=== PATIENT | male | born 1980 | race African-American/Black ===

== ENCOUNTER 2016-11-07 10:40 | Emergency (ER) | payer SELFPAY ==
[2016-03-26 13:39] VITALS: BP 96/50
== END 2016-11-07 11:45 | disposition left against medical advice (07) ==
LOC: ER 10:40
DX: M54.2 Cervicalgia (principal); Z53.21 Procedure and treatment not carried out due to patient leaving prior to being seen by health care provider

== ENCOUNTER 2017-03-11 07:54 | Emergency (ER) | payer SELFPAY ==
[~2017-03-11] VITALS: Ht 175.3 cm; Wt 83.0 kg
[2017-03-11 08:02] VITALS: BP 144/65
[2017-03-11 08:42] LABS: BASO % 0 % (0-3); EOS % 3 % (0-3); HEMATOCRIT 44.3 % (39.0-53.0); HEMOGLOBIN 14.8 g/dL (13.0-17.5); LYMPH # 1.9 x10^3/uL (1.0-4.8); LYMPH % 37 % (24-48); MEAN CORPUSCULAR HEMOGLOBIN 32 pg (25-35); MEAN CORPUSCULAR HGB CONC 34 g/dL (31-37); MEAN CORPUSCULAR VOLUME 97 fL (79-100); MONO % 8 % (0-9); NEUT % 53 % (31-73); PLATELET COUNT 210 x10^3/uL (140-400); RED BLOOD COUNT 4.58 x10^6/uL (4.30-5.70); RED CELL DISTRIBUTION WIDTH 13.4 % (11.5-14.5)
[2017-03-11 08:48] LABS: BILIRUBIN,URINE NEGATIVE (NEG); GLUCOSE,URINE NEGATIVE (NEG); NITRITE,URINE NEGATIVE (NEG); PH,URINE 6.5; PROTEIN,URINE NEGATIVE (NEG-TRACE); UROBILINOGEN,URINE 0.2 mg/dL (0.2 mg/dL)
--- NOTE | 2017-03-11 08:49 | PHYS DOC ---
Past Medical History Past Medical History: No Pertinent History Past Surgical History: No Surgical History Alcohol Use: Occasionally Drug Use: Marijuana Adult General Chief Complaint Chief Complaint: OTHER COMPLAINTS [facility] HPI Patient is a 36 year old male with no significant medical history who presents with multiple pain related complaints. Patient is complaining of 7 out of 10 left upper quadrant abdominal pain that began 3-4 days ago. Patient denies anything exacerbating or making the pain better. Denies any nausea vomiting. Patient is also complaining of isolated left lateral neck pain that began 3-4 days ago. Patient describes the pain as sharp only on movement of his neck to the left side. Patient denies any trauma. Denies any chest pain or shortness of breath. Patient is also complaining of mild left ventral forearm pain that began yesterday. Patient states the pain is worse on palpation of the left forearm. Patient denies any trauma. Denies doing any job that involves lifting. Patient states he has seen many commercials for stroke and would like to be worked up for CVA. Patient denies smoking. Review of Systems Review of Systems Constitutional: Denies fever or chills [] Eyes: Denies change in visual acuity, redness, or eye pain [] HENT: Denies nasal congestion or sore throat [] Respiratory: Denies cough or shortness of breath [] Cardiovascular: No additional information not addressed in HPI [] GI: Left upper quadrant pain [] : Denies dysuria or hematuria [] Musculoskeletal: Left forearm pain, left lateral neck pain Integument: Denies rash or skin lesions [] Neurologic: Denies headache, focal weakness or sensory changes [] Endocrine: Denies polyuria or polydipsia [] Allergies Allergies Allergies Coded Allergies Type Severity Reaction Last Updated Verified No Known Drug Allergies 05/13/14 No Physical Exam Physical Exam Constitutional: Well developed, well nourished, no acute distress, non-toxic appearance. [] HENT: Normocephalic, atraumatic, bilateral external ears normal, oropharynx moist, no oral exudates, nose normal. [] Eyes: PERRLA, EOMI, conjunctiva normal, no discharge. [] Neck: Normal range of motion, no tenderness, pain on rotation of the neck to the left side, supple, no stridor. [] Cardiovascular:Heart rate regular rhythm, no murmur [] Lungs & Thorax: Bilateral breath sounds clear to auscultation [] Abdomen: Bowel sounds normal, soft, no tenderness, no masses, no pulsatile masses. [] Skin: Warm, dry, no erythema, no rash. [] Back: No tenderness, no CVA tenderness. [] Extremities: No tenderness, no cyanosis, no clubbing, ROM intact, no edema. [] Neurologic: Alert and oriented X 3, normal motor function, normal sensory function, no focal deficits noted. [] Psychologic: Affect normal, judgement normal, mood normal. [] Current Patient Data Vital Signs Vital Signs Date Time Temp Pulse Resp B/P (MAP) Pulse Ox O2 Delivery O2 Flow Rate FiO2 03/11/17 08:02 98.5 68 144/65 (91) 98.5 Lab Values Laboratory Tests Test 03/11/17 07:58 03/11/17 08:33 Urine Collection Type Void Urine Color Yellow Urine Clarity Clear Urine pH 6.5 Urine Specific [place] 1.020 Urine Protein Negative mg/dL (NEG-TRACE) Urine Glucose (UA) Negative mg/dL (NEG) Urine Ketones (Stick) Negative mg/dL (NEG) Urine Blood Negative (NEG) Urine Nitrite Negative (NEG) Urine Bilirubin Negative (NEG) Urine Urobilinogen Dipstick 0.2 mg/dL (0.2 mg/dL) Urine Leukocyte Esterase Small (NEG) Urine RBC 0 /HPF (0-2) Urine WBC 1-4 /HPF (0-4) Urine Squamous Epithelial Cells Occ /LPF Urine Bacteria 0 /HPF (0-FEW) Urine Mucus Slight /LPF Urine Opiates Screen Neg (NEG) Urine Methadone Screen Neg (NEG) Urine Barbiturates Neg (NEG) Urine Phencyclidine Screen Neg (NEG) Urine Amphetamine/Methamphetamine Neg (NEG) Urine Benzodiazepines Screen Neg (NEG) Urine Cocaine Screen Neg (NEG) Urine Cannabinoids Screen Pos (NEG) Urine Ethyl Alcohol Neg (NEG) White Blood Count 5.0 x10^3/uL (4.0-11.0) Red Blood Count 4.58 x10^6/uL (4.30-5.70) Hemoglobin 14.8 g/dL (13.0-17.5) Hematocrit 44.3 % (39.0-53.0) Mean Corpuscular Volume 97 fL (79-100) Mean Corpuscular Hemoglobin 32 pg (25-35) Mean Corpuscular Hemoglobin Concent 34 g/dL (31-37) Red Cell Distribution Width 13.4 % (11.5-14.5) Platelet Count 210 x10^3/uL (140-400) Neutrophils (%) (Auto) 53 % (31-73) Lymphocytes (%) (Auto) 37 % (24-48) Monocytes (%) (Auto) 8 % (0-9) Eosinophils (%) (Auto) 3 % (0-3) Basophils (%) (Auto) 0 % (0-3) Neutrophils # (Auto) 2.6 x10^3uL (1.8-7.7) Lymphocytes # (Auto) 1.9 x10^3/uL (1.0-4.8) Monocytes # (Auto) 0.4 x10^3/uL (0.0-1.1) Eosinophils # (Auto) 0.1 x10^3/uL (0.0-0.7) Basophils # (Auto) 0.0 x10^3/uL (0.0-0.2) Prothrombin Time 12.7 SEC (11.7-14.0) Prothrombin Time INR 1.0 (0.8-1.1) PTT 27 SEC (24-38) Sodium Level 143 mmol/L (136-145) Potassium Level 4.4 mmol/L (3.5-5.1) Chloride Level 107 mmol/L (98-107) Carbon Dioxide Level 32 mmol/L (21-32) Anion Gap 4 (6-14) L Blood Urea Nitrogen 18 mg/dL (8-26) Creatinine 1.1 mg/dL (0.7-1.3) Estimated GFR (Cockcroft-Gault) 92.2 BUN/Creatinine Ratio 16 (6-20) Glucose Level 100 mg/dL (70-99) H Calcium Level 8.8 mg/dL (8.5-10.1) Total Bilirubin 0.5 mg/dL (0.2-1.0) Aspartate Amino Transferase (AST) 23 U/L (15-37) Alanine Aminotransferase (ALT) 39 U/L (16-63) Alkaline Phosphatase 55 U/L (46-116) Troponin I Quantitative < 0.017 ng/mL (0.000-0.055) Total Protein 6.8 g/dL (6.4-8.2) Albumin 3.8 g/dL (3.4-5.0) Albumin/Globulin Ratio 1.3 (1.0-1.7) Lipase 494 U/L (73-393) H Ethyl Alcohol Level < 10 mg/dL (0-10) Laboratory Tests 03/11/17 08:33 Laboratory Tests 03/11/17 08:33 EKG EKG [] Radiology/Procedures Radiology/Procedures [] Course & Med Decision Making Course & Med Decision Making Pertinent Labs and Imaging studies reviewed. (See chart for details) Patient is in the ED with multiple pain related complaints. Patient is complaining of left upper quadrant abdominal pain for 3-4 days, and left lateral neck pain worse on movement for 3-4 days, and left ventral forearm pain for 1 day. No known trauma. Patient would like to be worked up for CVA. He states has seen so many stroke commercials and would like to be worked up. He has no history of stroke. EKG interpreted by , Sinus Rhythm, HR 50 QRS interval 86, no STEMI CBC BMP troponin with no acute findings. Lipase 494. Patient states he has been drinking over the holidays but not much. CT of the abdomen and pelvic with no acute findings. Patient was discharged with instructions to follow-up with the primary care doctor. Discharged with naproxen and Flexeril. Provided return precautions and discharged in stable condition. Dragon Disclaimer Dragon Disclaimer This electronic medical record was generated, in whole or in part, using a voice recognition dictation system. Departure Departure Impression: Primary Impression: Torticollis, acute Additional Impressions: Left upper quadrant pain Musculoskeletal pain of left upper extremity Elevated lipase Marijuana abuse Disposition: 01 HOME, SELF-CARE Condition: STABLE Referrals: NO PCP (PCP) Follow-up with your own doctor in the next 1 week Patient Instructions: Musculoskeletal Pain, Torticollis, Acute Additional Instructions: You were seen with multiple musculoskeletal pain complaints. We highly recommend you follow-up with your own primary care doctor. Use the prescriptions provided as needed. Come back to the ED symptoms worsen. Scripts Naproxen (NAPROXEN) 500 Mg Tablet. 1 TAB PO BID, #60 TAB 1 Refill Prov: MOJAVIERJOSUE APRN 03/11/17 Cyclobenzaprine Hcl (CYCLOBENZAPRINE HCL) 10 Mg Tablet 1 TAB PO TID, #30 TAB Prov: JOSUE VILLEDA APRN 03/11/17 Problem Qualifiers JOSUE VILLEDA APRN March 11, 2017 08:49
[2017-03-11 08:53] LABS: BARBITURATES NEG (NEG); BENZODIAZEPINES NEG (NEG); CANNABINOIDS POS (NEG); COCAINE NEG (NEG); METHADONE NEG (NEG); PHENCYCLIDINE NEG (NEG)
[2017-03-11 08:55] LABS: CALCIUM 8.8 mg/dL (8.5-10.1); CREATININE 1.1 mg/dL (0.7-1.3); GFR 92.2; POTASSIUM 4.4 mmol/L (3.5-5.1); PROTHROMBIN TIME PATIENT 12.7 SEC (11.7-14.0)
[2017-03-11 08:56] LABS: BACTERIA,URINE 0 /HPF (0-FEW); RBC,URINE 0 /HPF (0-2); SQUAMOUS EPITHELIAL CELL,UR OCC /LPF
[2017-03-11 09:01] LABS: ALBUMIN 3.8 g/dL (3.4-5.0); ALBUMIN/GLOBULIN RATIO 1.3 (1.0-1.7); TOTAL BILIRUBIN 0.5 mg/dL (0.2-1.0); TOTAL PROTEIN 6.8 g/dL (6.4-8.2)
[2017-03-11 09:02] LABS: OPIATES NEG (NEG)
--- NOTE | 2017-03-11 09:05 | RAD ---
Indication left upper quadrant pain. Axial images through the abdomen and pelvis were obtained. The examination is limited. No IV or gastrointestinal contrast was administered. No prior imaging of the abdomen or pelvis is available. The lung bases are clear. The liver and spleen appear unremarkable and the gallbladder appears grossly normal. No pancreatic pathology is suggested. There are no adrenal masses and the kidneys appear normal. No renal calculi are seen on either side. There is no hydronephrosis hydroureter or definite calcification seen along the course of either ureter. Occasional calcifications are noted in the pelvis compatible with phleboliths. An acute finding in the abdomen is not seen. No acute finding is apparent in the pelvis. IMPRESSION:: No acute finding seen in the abdomen or pelvis. PQRS Compliance Statement: One or more of the following individualized dose reduction techniques were utilized for this examination: 1. Automated exposure control 2. Adjustment of the mA and/or kV according to patient size 3. Use of iterative reconstruction technique
[2017-03-11] MEDS ORDERED: CYCL10TA2 PO (09:46)
[2017-03-11] MEDS ORDERED: NAPR500T8 PO (09:46)
--- NOTE | 2017-03-11 11:16 | EKG ---
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
== END 2017-03-11 10:05 | disposition home or self-care (01) ==
LOC: ER 07:54
DX: R10.12 Left upper quadrant pain (principal); M43.6 Torticollis; M79.1 Myalgia; R74.8 Abnormal levels of other serum enzymes; F12.10 Cannabis abuse, uncomplicated
CPT/HCPCS: 36415; 74176; 80053; 80305; 80320; 81001; 83690; 84484; 85027; 85610; 85730; 93005; G0480; G0481; 99285-25

== ENCOUNTER 2018-01-05 18:30 | Emergency (ER) | payer SELFPAY | END 2018-01-05 19:07 | disposition home or self-care (01) | LOC: ER 19:07 | DX: H66.42 Suppurative otitis media, unspecified, left ear (principal); F12.10 Cannabis abuse, uncomplicated | CPT/HCPCS: 10060; 99283-25 ==

== ENCOUNTER 2018-03-12 06:08 | Emergency (ER) | payer SELFPAY ==
[2018-03-12 07:41] LABS: ADD MAN DIFF? NO
[2018-03-12 07:57] LABS: BASO % 1 % (0-3); EOS # 0.1 x10^3/uL (0.0-0.7); EOS % 2 % (0-3); HEMATOCRIT 46.1 % (39.0-53.0); HEMOGLOBIN 15.8 g/dL (13.0-17.5); LYMPH # 1.8 x10^3/uL (1.0-4.8); LYMPH % 30 % (24-48); MEAN CORPUSCULAR HEMOGLOBIN 33 pg (25-35); MEAN CORPUSCULAR HGB CONC 34 g/dL (31-37); MEAN CORPUSCULAR VOLUME 95 fL (79-100); MONO # 0.4 x10^3/uL (0.0-1.1); MONO % 7 % (0-9); NEUT # 3.6 x10^3uL (1.8-7.7); NEUT % 60 % (31-73); PLATELET COUNT 254 x10^3/uL (140-400); RED BLOOD COUNT 4.84 x10^6/uL (4.30-5.70); RED CELL DISTRIBUTION WIDTH 13.8 % (11.5-14.5)
[2018-03-12 07:58] LABS: ANION GAP 8 (6-14); BLOOD UREA NITROGEN 19 mg/dL (8-26); CALCIUM 8.9 mg/dL (8.5-10.1); CARBON DIOXIDE 30 mmol/L (21-32); CHLORIDE 104 mmol/L (98-107); CREATININE 1.1 mg/dL (0.7-1.3); GFR 91.6; GLUCOSE 95 mg/dL (70-99); POTASSIUM 4.2 mmol/L (3.5-5.1); SODIUM 142 mmol/L (136-145)
[2018-03-12 08:07] LABS: TROPONINI < 0.017 ng/mL (0.000-0.055)
[2018-03-12 08:24] LABS: D-DIMER < 0.27 ug/mlFEU (0.00-0.50)
== END 2018-03-12 08:53 | disposition home or self-care (01) ==
LOC: ER 06:08
DX: S16.1XXA Strain of muscle, fascia and tendon at neck level, initial encounter (principal); F12.10 Cannabis abuse, uncomplicated; X58.XXXA Exposure to other specified factors, initial encounter; Y93.89 Activity, other specified; Y99.8 Other external cause status; Y92.89 Other specified places as the place of occurrence of the external cause
CPT/HCPCS: 36415; 71046; 80048; 84484; 85025; 85379; 93005; 99285-25

== ENCOUNTER 2018-04-27 17:13 | Emergency (ER) | payer SELFPAY ==
[2018-04-27] MEDS: traMADol 50 MG TABLET PO (17:36)
== END 2018-04-27 17:38 | disposition home or self-care (01) ==
LOC: ER 17:13
DX: S69.92XA Unspecified injury of left wrist, hand and finger(s), initial encounter (principal); W22.8XXA Striking against or struck by other objects, initial encounter; Y93.67 Activity, basketball; Y92.89 Other specified places as the place of occurrence of the external cause; Y99.8 Other external cause status
CPT/HCPCS: 99283

== ENCOUNTER 2018-05-19 08:54 | Emergency (ER) | payer SELFPAY | END 2018-05-19 10:13 | disposition home or self-care (01) | LOC: ER 08:54 | DX: S62.611A Displaced fracture of proximal phalanx of left index finger, initial encounter for closed fracture (principal); W21.05XA Struck by basketball, initial encounter; Y93.89 Activity, other specified; Y92.89 Other specified places as the place of occurrence of the external cause; Y99.8 Other external cause status | CPT/HCPCS: 29130; 73140; 99284 ==

== ENCOUNTER 2018-09-15 19:18 | Emergency (ER) | payer SELFPAY ==
[~2018-09-15] VITALS: Ht 175.3 cm; Wt 83.0 kg
[~2018-09-15 19:18] MED LIST: CYCL10TA2 PO; MUPI22OI2 TP; NAPR500T8 PO; TRAM50TA PO
[2018-09-15 19:29] VITALS: BP 137/68
--- NOTE | 2018-09-15 19:34 | PHYS DOC ---
Past Medical History Past Medical History: No Pertinent History Past Surgical History: No Surgical History Alcohol Use: None Drug Use: Marijuana Adult General Chief Complaint Chief Complaint: EYE PROBLEMS HPI HPI 38-year-old male presents to ER via POV with complaints of right eye irritation and lower lid swelling. Patient reports symptoms have been ongoing for the past couple of days but have been gradually worsening with increased itching. Patient denies any injury or foreign body. Patient denies working with chemicals or splashing liquid into his eye. Patient denies fever, sinus issues, or cold-like symptoms. Patient reports with increased irritation he has had some intermittent blurred vision from right eye. He reports he has had clear drainage from the eye. Review of Systems Review of Systems Constitutional: Denies fever or chills [] Eyes: Denies change in visual acuity, redness, or eye pain [] HENT: Denies nasal congestion or sore throat [] Respiratory: Denies cough or shortness of breath [] Cardiovascular: No additional information not addressed in HPI [] GI: Denies abdominal pain, nausea, vomiting, bloody stools or diarrhea [] : Denies dysuria or hematuria [] Musculoskeletal: Denies back pain or joint pain [] Integument: Denies rash or skin lesions [] Neurologic: Denies headache, focal weakness or sensory changes [] Endocrine: Denies polyuria or polydipsia [] All other systems were reviewed and found to be within normal limits, except as documented in this note. Current Medications Current Medications Current Medications Medications (Trade) Dose Ordered Sig/Katina Start Time Stop Time Status Last Admin Dose Admin Erythromycin (Romycin) 1 inch STK-MED ONCE 09/15/18 19:37 09/15/18 19:38 DC Proparacaine HCl/ Fluorescein Sodium (Flucaine Eye Drops) 1 drop 1X ONCE 09/15/18 19:45 09/15/18 19:46 DC 09/15/18 19:47 1 DROP Tetracaine HCl (Tetracaine) 40 drop STK-MED ONCE 09/15/18 19:37 09/15/18 19:38 DC Allergies Allergies Allergies Coded Allergies Type Severity Reaction Last Updated Verified No Known Drug Allergies 05/13/14 No Physical Exam Physical Exam Constitutional: Well developed, well nourished, no acute distress, non-toxic appearance. [] HENT: Normocephalic, atraumatic, bilateral external ears normal, oropharynx moist, no oral exudates, nose normal. [] Eyes: PERRLA, EOMI, conjunctiva normal, no discharge. [] Neck: Normal range of motion, no tenderness, supple, no stridor. [] Cardiovascular:Heart rate regular rhythm, no murmur [] Lungs & Thorax: Bilateral breath sounds clear to auscultation [] Abdomen: Bowel sounds normal, soft, no tenderness, no masses, no pulsatile masses. [] Skin: Warm, dry, no erythema, no rash. [] Back: No tenderness, no CVA tenderness. [] Extremities: No tenderness, no cyanosis, no clubbing, ROM intact, no edema. [] Neurologic: Alert and oriented X 3, normal motor function, normal sensory function, no focal deficits noted. [] Psychologic: Affect normal, judgement normal, mood normal. [] Current Patient Data Vital Signs Vital Signs Date Time Temp Pulse Resp B/P (MAP) Pulse Ox O2 Delivery O2 Flow Rate FiO2 09/15/18 19:29 98.7 63 18 137/68 (91) 99 Room Air 98.7 EKG EKG [] Radiology/Procedures Radiology/Procedures Eye Exam w/ mccormack lamp: 2000 Visual Acuity: Visual Koch: Intact in all four quadrants bilaterally Lac ducts/glands: No swelling Lids w/ evertion: Small stye left lower eyelid, no foreign body Conj/[place]: negative Fluorescein Course & Med Decision Making Course & Med Decision Making [] Dragon Disclaimer Dragon Disclaimer This electronic medical record was generated, in whole or in part, using a voice recognition dictation system. Departure Departure Impression: Primary Impression: Conjunctivitis Additional Impression: Hordeolum externum left lower eyelid Disposition: HOME, SELF-CARE Condition: STABLE Referrals: NO PCP (PCP) Patient Instructions: Conjunctivitis (Viral and Bacterial), Sty Additional Instructions: Avoid rubbing eye- cool compress to eye 3-4 times a day. Tylenol and/or ibuprofen as directed on container as needed for pain. If symptoms persist follow-up with the baking assistant or primary care physician. Scripts Erythromycin Base (Erythromycin) 1 Gm Oint...g. 1 GM OP QID, #1 MISC 0 Refills 0.5% 1/2' RIBBON TO RIGHT LOWER EYELID Prov: MARIE GUZMAN APRN 09/15/18 Problem Qualifiers MARIE GUZMAN APRN Sep 15, 2018 19:34
[2018-09-15] MEDS ORDERED: TETRACAINE 0.5% OPHTH SOLUTION 4ML BOTTLE. ONE (19:37)
[2018-09-15] MEDS ORDERED: ERYTHROMYCIN 0.5% OPHTH OINTMENT 1GM TUBE. ONE (19:37)
[2018-09-15] MEDS ORDERED: ERYT1OIN6 OP (19:43)
[2018-09-15] MEDS ORDERED: ERYTHROMYCIN 0.5% OPHTH OINTMENT 1GM TUBE. OD ONE (19:45)
[2018-09-15] MEDS ORDERED: PROPARACAINE/FLUORESCEIN 0.5 ML OPHTH DROPS. OD ONE (19:45)
[2018-09-15] MEDS ORDERED: TETRACAINE 0.5% OPHTH SOLUTION 4ML BOTTLE. OD ONE (19:45)
== END 2018-09-15 20:16 | disposition home or self-care (01) ==
LOC: ER 19:18
DX: H00.015 Hordeolum externum left lower eyelid (principal); H10.89 Other conjunctivitis; H53.8 Other visual disturbances
CPT/HCPCS: 99284

== ENCOUNTER 2021-09-17 12:52 | Emergency (ER) | payer SELFPAY ==
[~2021-09-17] VITALS: Ht 175.3 cm; Wt 81.1 kg
[~2021-09-17 12:52] MED LIST changes: +CYCL10TA19 PO; -CYCL10TA2 PO; +ERYT1OIN6 OP
[2021-09-17 14:04] VITALS: BP 117/73
--- NOTE | 2021-09-17 15:44 | RAD ---
XR LUMBAR SPINE 2-3V Clinical indications: Reason: back pain / Spl. Instructions: / History: Findings: The transverse processes are intact. No compression fracture or discitis or lytic process is evident. No anterolisthesis is seen. IMPRESSION: No acute osseous abnormality is evident. Electronically signed by: Albert Owens MD (09/17/2021 3:41 PM) [id number]
--- NOTE | 2021-09-17 15:48 | RAD ---
XR BILATERAL HIP (WITH OR WITHOUT PELVIS) LEFT 2 VIEWS Clinical indications: Reason: back pain / Spl. Instructions: / History: Findings: No acute fracture or dislocation or osteolytic process is evident. No diastases of the sym physis pubis or either SI joint is seen. The hip joints are symmetric. IMPRESSION: No acute osseous abnormality is evident. Electronically signed by: Albert Owens MD (09/17/2021 3:46 PM) [id number]
[2021-09-17] MEDS ORDERED: NAPR-514 PO (16:41)
[2021-09-17] MEDS ORDERED: CYCL10TA19 PO (16:41)
--- NOTE | 2021-09-17 16:41 | PHYS DOC ---
Past Medical History Past Medical History: No Pertinent History Past Surgical History: No Surgical History Smoking Status: Never Smoker Alcohol Use: None Drug Use: Marijuana General Adult EDM: Chief Complaint: LOWER BACK PAIN OR INJURY HPI: HPI: Patient is a 41 year old male with no significant medical history who presents the ED today complaining of 10 out of 10 left low back pain with, left hip pain, symptoms began yesterday after he fell and landed on his buttocks. Patient denies any loss of consciousness, denies hitting his head on the ground. Describes the pain as sharp and intermittent worse on weightbearing. He states his friend told him he could have a dislocated hip. Denies any difficulty ambulating. Denies any loss of bowel/bladder function. Denies any numbness or tingling to bilateral lower extremities. Review of Systems: Review of Systems: Constitutional: Denies fever or chills. [] Musculoskeletal: Reports low back pain, left hip pain Integument: Denies rash. [] Neurologic: Denies headache, focal weakness or sensory changes. [] Psychiatric: Denies depression or anxiety. [] Heart Score: C/O Chest Pain: N/A Risk Factors: Risk Factors: DM, Current or recent (<one month) smoker, HTN, HLP, family history of CAD, obesity. Risk Scores: Score 0 - 3: 2.5% MACE over next 6 weeks - Discharge Home Score 4 - 6: 20.3% MACE over next 6 weeks - Admit for Clinical Observation Score 7 - 10: 72.7% MACE over next 6 weeks - Early Invasive Strategies Allergies: Allergies: Allergies Coded Allergies Type Severity Reaction Last Updated Verified No Known Drug Allergies 05/13/14 No Physical Exam: PE: Constitutional: Well developed, well nourished, no acute distress, non-toxic appearance. [] Abdomen: Bowel sounds normal, soft, no tenderness, no masses, no pulsatile masses. [] Skin: Warm, dry, no erythema, no rash. [] Back: No tenderness, no CVA tenderness. [] Extremities: No tenderness, no cyanosis, no clubbing, ROM intact, no edema. [] Neurologic: Alert and oriented X 3, normal motor function, normal sensory function, no focal deficits noted. [] Psychologic: Affect normal, judgement normal, mood normal. [] Current Patient Data: Vital Signs: Vital Signs Date Time Temp Pulse Resp B/P (MAP) Pulse Ox O2 Delivery O2 Flow Rate FiO2 09/17/21 14:04 97.8 52 10 117/73 (88) 99 Room Air 97.8 EKG: EKG: [] Radiology/Procedures: Radiology/Procedures: []PROCEDURE: HIP LEFT 2V WITH PELVIS XR BILATERAL HIP (WITH OR WITHOUT PELVIS) LEFT 2 VIEWS Clinical indications: Reason: back pain / Spl. Instructions: / History: Findings: No acute fracture or dislocation or osteolytic process is evident. No diastases of the symphysis pubis or either SI joint is seen. The hip joints are symmetric. IMPRESSION: No acute osseous abnormality is evident. Electronically signed by: Jose Carlos Owens MD (09/17/2021 3:46 PM) [id number] DICTATED and SIGNED BY: JOSE CARLOS OWENS MD DATE: 09/17/21 [id number] PROCEDURE: LUMBAR SPINE 2-3V XR LUMBAR SPINE 2-3V Clinical indications: Reason: back pain / Spl. Instructions: / History: Findings: The transverse processes are intact. No compression fracture or discitis or lytic process is evident. No anterolisthesis is seen. IMPRESSION: No acute osseous abnormality is evident. Electronically signed by: Jose Carlos Owens MD (09/17/2021 3:41 PM) [id number] DICTATED and SIGNED BY: JOSE CARLOS OWENS MD DATE: 09/17/21 [id number] Course & Med Decision Making: Course & Med Decision Making Pertinent Labs and Imaging studies reviewed. (See chart for details) This is a 41-year-old male patient presented to the ED today complaining of left low back pain and left hip pain after falling. X-rays of the lumbar spine and left hip are negative for any acute findings, discharged to home. Follow-up with orthopedic doctor PCP in 1 week Alejandra Disclaimer: Alejandra Disclaimer: This electronic medical record was generated, in whole or in part, using a voice recognition dictation system. Departure Departure Impression: Primary Impression: Fall from standing Qualified Codes: W19.XXXA - Unspecified fall, initial encounter Additional Impressions: Lumbar contusion Qualified Codes: S30.0XXA - Contusion of lower back and pelvis, initial encounter Contusion of left hip Qualified Codes: S70.02XA - Contusion of left hip, initial encounter Disposition: HOME / SELF CARE / HOMELESS Condition: STABLE Referrals: NO PCP (PCP) VANITA ZAVALA II, MD follow up in one week Patient Instructions: Contusion, [id number] Additional Instructions: You were seen for low back pain and left hip pain after falling, your low back x-rays and left hip x-rays were negative for any acute findings, please follow- up with your primary care doctor or orthopedic doctor provided in 1 week. Try to ice and elevate extremity. Take the prescribed medications as needed for pain. Scripts Naproxen (NAPROXEN) 500 Mg Tablet 1 TAB PO BID for pain, #20 TAB 0 Refills Prov: JOSUE VILLEDA APRN 09/17/21 Cyclobenzaprine Hcl (CYCLOBENZAPRINE HCL) 10 Mg Tablet 1 TAB PO TID, #30 TAB Prov: JOSUE VILLEDA APRN 09/17/21 JOSUE VILLEDA APRN Sep 17, 2021 16:41
[2021-09-17] MEDS ORDERED: HYDROcodone/APAP 5/325MG 1 TAB TABLET PO ONE (16:45)
[2021-09-17] MEDS ORDERED: HYDROcodone/APAP 5/325MG 1 TAB TABLET ONE (16:46)
== END 2021-09-17 16:50 | disposition home or self-care (01) ==
LOC: ER 12:52
DX: S30.0XXA Contusion of lower back and pelvis, initial encounter (principal); S70.02XA Contusion of left hip, initial encounter; W18.39XA Other fall on same level, initial encounter; Y93.89 Activity, other specified; Y92.89 Other specified places as the place of occurrence of the external cause; Y99.8 Other external cause status
CPT/HCPCS: 72100; 73502; 99284